=== PATIENT | female | born 1975 | race Two or more races ===

== ENCOUNTER → 2016-09-30 | Outpatient (CLI) | payer OTHER ==
[~2016-09-30] MED LIST: DOCU-30 PO; HYDR-3240 PO
[2016-09-30 11:06] LABS: BLOOD UREA NITROGEN 9 mg/dL (7-18)
[2016-09-30 11:08] LABS: ASPARTATE AMINO TRANSFERASE 21 U/L (15-37)
[2016-09-30 11:09] LABS: HEMOGLOBIN 13.5 g/dL (11.7-16.4)
== END | disposition home or self-care (01) ==
LOC: LAB 10:34
PROVIDERS: ATTEND Pathology Hematology
DX: C17.1 Malignant neoplasm of jejunum (principal)
CPT/HCPCS: 36415; 80053; 85025

== ENCOUNTER → 2016-10-15 | Outpatient (CLI) | payer OTHER ==
[2016-10-15 10:40] LABS: HEMOGLOBIN 13.2 g/dL (11.7-16.4)
== END | disposition home or self-care (01) ==
LOC: LAB 10:09
PROVIDERS: ATTEND Pathology Hematology
DX: D48.1 Neoplasm of uncertain behavior of connective and other soft tissue (principal)
CPT/HCPCS: 36415; 85025

== ENCOUNTER → 2016-10-31 | Outpatient (CLI) | payer OTHER ==
[2016-10-31 20:21] LABS: HEMOGLOBIN 13.1 g/dL (11.7-16.4)
== END | disposition home or self-care (01) ==
LOC: LAB 20:00
PROVIDERS: ATTEND Family Medicine
DX: D48.1 Neoplasm of uncertain behavior of connective and other soft tissue (principal)
CPT/HCPCS: 36415; 85025

== ENCOUNTER → 2016-11-15 | Outpatient (CLI) | payer OTHER | END | disposition home or self-care (01) | LOC: LAB 09:59 | PROVIDERS: ATTEND Pathology Hematology | DX: D48.1 Neoplasm of uncertain behavior of connective and other soft tissue (principal) | CPT/HCPCS: 36415; 85025 ==

== ENCOUNTER → 2016-11-26 | Outpatient (CLI) | payer OTHER ==
[2016-11-26 10:16] LABS: ASPARTATE AMINO TRANSFERASE 20 U/L (15-37); BLOOD UREA NITROGEN 13 mg/dL (7-18)
== END | disposition home or self-care (01) ==
LOC: LAB 09:52
PROVIDERS: ATTEND Pathology Hematology
DX: D48.1 Neoplasm of uncertain behavior of connective and other soft tissue (principal)
CPT/HCPCS: 36415; 80053